=== PATIENT | female | born 1955 | race Caucasian/White ===

== ENCOUNTER 2022-01-06 08:06 | Outpatient (CLI) | payer MEDICARE, BC, SELFPAY ==
--- NOTE | 2022-01-06 08:15 | CRLHL7_ITS ---
For Patients: As a result of the Century Cures Act, medical imaging exams and procedure reports are released immediately into your electronic medical record. You may view this report before your referring provider. If you have questions, please contact your health care provider. BILATERAL SCREENING MAMMOGRAM WITH COMPUTER-AIDED DETECTION AND TOMOSYNTHESIS TECHNIQUE: CC and MLO views were obtained. These mammographic images have been obtained using full-field digital technique. These mammographic images were interpreted with the benefit of computer-aided detection. Breast Tomosynthesis was used in this interpretation. COMPARISON FILM: 01/04/21, 01/03/20, 01/01/19. FINDINGS: There are scattered areas of fibroglandular density IMPRESSION: There is no radiographic evidence for malignancy. ASSESSMENT: BI-RADS Category 1: Negative RECOMMENDATION: Routine screening mammogram in 1 year. A lay language report of this examination will be provided to the patient. Suleman Salazar M.D. Diagnostic Radiologist [email or web address] TRINH/Dictated by: Suleman Salazar MD @ 01/06/2022 12:41:00 PM (Electronically Signed)
== END 2022-01-06 08:07 | disposition home or self-care (01) ==
LOC: MAMMO 08:09
PROVIDERS: PCP Internal Medicine; Visit Provider Internal Medicine
DX: Z12.31 Encounter for screening mammogram for malignant neoplasm of breast (principal)
CPT/HCPCS: 77063; 77067

== ENCOUNTER 2022-01-24 16:15 | Outpatient (CLI) | payer MEDICARE, BC, SELFPAY ==
[2022-01-24 09:34] LABS: Cholesterol* 199 mg/dL (90-199); HDL Cholesterol* 79 mg/dL (>=50); LDL Cholesterol Calculated 107 mg/dL (<100); Triglycerides* 67 mg/dL (40-149)
[2022-01-24 09:48] LABS: Vitamin D 25 Hydroxy* 47 ng/mL (30-80)
== END 2022-01-24 16:16 | disposition home or self-care (01) ==
PROVIDERS: PCP Internal Medicine; Visit Provider Internal Medicine
DX: Z01.419 Encounter for gynecological examination (general) (routine) without abnormal findings (principal); M85.80 Other specified disorders of bone density and structure, unspecified site; E78.5 Hyperlipidemia, unspecified
CPT/HCPCS: 80061; 82306

== ENCOUNTER 2022-04-05 07:46 | Outpatient (CLI) | payer MEDICARE, BC, SELFPAY | END 2022-04-05 07:47 | disposition home or self-care (01) | LOC: OP CLINIC 07:47 | PROVIDERS: PCP Internal Medicine; Visit Provider Surgery | DX: R19.5 Other fecal abnormalities (principal); K63.5 Polyp of colon; K64.4 Residual hemorrhoidal skin tags; K57.30 Diverticulosis of large intestine without perforation or abscess without bleeding | CPT/HCPCS: 45385; 88305; 99153; J2250; J2405; J3010 ==

== ENCOUNTER 2023-01-09 14:17 | Outpatient (CLI) | payer MEDICARE, BC, SELFPAY ==
--- NOTE | 2023-01-09 14:40 | CRLHL7_ITS ---
For Patients: As a result of the Century Cures Act, medical imaging exams and procedure reports are released immediately into your electronic medical record. You may view this report before your referring provider. If you have questions, please contact your health care provider. BILATERAL SCREENING MAMMOGRAM WITH COMPUTER-AIDED DETECTION AND TOMOSYNTHESIS TECHNIQUE: CC and MLO views were obtained. These mammographic images have been obtained using full-field digital technique. These mammographic images were interpreted with the benefit of computer-aided detection. Breast Tomosynthesis was used in this interpretation. COMPARISON FILM: 01/06/22, 01/04/21, 01/03/20. FINDINGS: There are scattered areas of fibroglandular density IMPRESSION: There is no radiographic evidence for malignancy. ASSESSMENT: BI-RADS Category 1: Negative RECOMMENDATION: Routine screening mammogram in 1 year. A lay language report of this examination will be provided to the patient. Suleman Slaazar M.D. Diagnostic Radiologist [email or web address] TRINH/Dictated by: Suleman Salazar MD @ 01/10/2023 12:20:00 PM (Electronically Signed)
== END 2023-01-09 14:18 | disposition home or self-care (01) ==
PROVIDERS: PCP Internal Medicine; Visit Provider Internal Medicine
DX: Z12.31 Encounter for screening mammogram for malignant neoplasm of breast (principal)
CPT/HCPCS: 77063; 77067

== ENCOUNTER 2023-01-25 07:26 | Outpatient (CLI) | payer MEDICARE, BC, SELFPAY | END 2023-01-25 07:27 | disposition home or self-care (01) | LOC: NFLDREF 01-27 10:48 | PROVIDERS: PCP Internal Medicine; Referring Provider Internal Medicine; Visit Provider Internal Medicine | DX: E78.5 Hyperlipidemia, unspecified (principal); M85.80 Other specified disorders of bone density and structure, unspecified site | CPT/HCPCS: 80061; 82306 ==

== ENCOUNTER 2024-01-16 09:56 | Outpatient (CLI) | payer MEDICARE, BC, SELFPAY ==
--- NOTE | 2024-01-16 10:15 | CRLHL7_ITS ---
For Patients: As a result of the Cures Act, medical imaging exams and procedure reports are released immediately into your electronic medical record. You may view this report before your referring provider. If you have questions, please contact your health care provider. BILATERAL SCREENING MAMMOGRAM WITH COMPUTER-AIDED DETECTION AND TOMOSYNTHESIS TECHNIQUE: CC and MLO views were obtained. These mammographic images have been obtained using full-field digital technique. These mammographic images were interpreted with the benefit of computer-aided detection. Breast Tomosynthesis was used in this interpretation. COMPARISON FILM: 01/09/23, 01/06/22, 01/04/21. FINDINGS: There are scattered areas of fibroglandular density IMPRESSION: There is no radiographic evidence for malignancy. ASSESSMENT: BI-RADS Category 1: Negative RECOMMENDATION: Routine screening mammogram in 1 year. A lay language report of this examination will be provided to the patient. Suleman Salazar M.D. Diagnostic Radiologist [email or web address] LUZ ELENA/raul Transcribed: 1:37 p.mRamone carter/Dictated by: Suleman Salazar MD @ 01/16/2024 10:51:00 AM (Electronically Signed)
--- OUTSIDE RECORDS SUMMARY | 2024-01-16 11:14 | XMS_ITS | Clinical Summary ---
Author Organization [facility] Address [address] [place] [address]. [place] [address] Care Team Providers Care Development Coordinator Name Role Phone Keena Oro Primary Care Provider Unavailab le Allergies No known active allergies Medications Medication Sig Dispensed Refills Start Date End Date Status multivitamin, therapeutic with minerals (MULTI-VITAMIN) TABS tablet Take 1 tablet by mouth daily Active cetirizine (ZYRTEC) 10 MG tablet Take 10 mg by mouth daily Active VITAMIN D, CHOLECALCIFEROL, PO Take 2,000 Units by mouth daily Active DOCUSATE SODIUM PO Take 100 mg by mouth every 72 hours (every 3rd day) Active oxyCODONE-acetaminoph en (PERCOCET) 5-325 MG per tabletIndications:Cys tocangus, midline Take 1-2 tablets by mouth every 4 hours as needed for pain (moderate to severe) 15 tablet 01/15/2018 Active docusate sodium (COLACE) 100 MG tabletIndications:Cys tocangus midline Take 100 mg by mouth daily 60 tablet 1 01/15/2018 Active Active Problems Problem Noted Date Diagnosed Date Cystocele, midline 01/15/2018 Social History Tobacco Use Types Packs/Day Years Used Date Smoking Tobacco: Never Smokeless Tobacco: Never Alcohol Use Standard Drinks/Week Comments Yes 0 (1 standard drink = 0.6 oz pur e alcohol) 2 drinks per month Adolescent Education Answer Date Record ed Getting School Help Needed Not on file 12/30 Sex and Gender Information Value Date Recorded Sex Assigned at Not on file Gender Identity Not on file Sexual Orientation Not on file Last Filed Vital Signs Vital Sign Reading Time Taken Comments Blood Pressure 121/64 01/16/2018 8:27 AM CDT Pulse 89 01/15/2018 9:15 PM CDT Temperature 36.8 ??C (98.3 ??F) 01/16/2018 8:27 AM CD T Respiratory Rate 16 01/16/2018 8:27 AM CDT Oxygen Saturation 92% 01/16/2018 8:27 AM CDT Inhaled Oxygen Concentration - - Weight 73.8 kg (162 lb 11.2 oz) 018 11:40 AM CDT Height 152.4 cm (5') 01/15/2018 11:40 AM CDT Body Mass Index 31.78 01/15/2018 11:40 AM CDT Plan of Treatment Not on file Medical Devices Implanted Type Area Compensation/Benefits Specialist Device Identifier Shelf Expiration Date Model / Serial / Lot Mesh Sling Y Shape Restorelle 24x4cm [id number] Implanted:Qty: 1 on 01/15/2018 by Alex Delcid MD at [facility] Mesh Pelvis [employer] 09/11/2020 [id number] / / [id number] Mesh Sling Obtryx-Halo Implanted:Qty: 1 on 01/15/2018 by Alex Delcid MD at [facility] Mesh N/A: Pelvis [employer] 10/23/2020 [id number] / / [id number] Advance Directives For more information, please contact: [phone] * Full Code (Latest Code Status on File) Date Activated Date Inactivated Comments 01/15/2018 6:07 PM 01/16/2018 3:10 PM Question Answer Comments Code status determined by: Unable to dis cuss and no AD/POLST on file; continue PREVIOUSLY ORDERED code status Care Teams Development Coordinator Relationship Specialty Start Date End Date Keena Oro PCP - General Family Practice 12/20/17
--- OUTSIDE RECORDS SUMMARY | 2024-01-16 11:14 | XMS_ITS | Referral Summary ---
Author Organization [facility] Address [address] [place] [address]. [place] [address] Care Team Providers Care Rehab Specialist Name Role Phone Keena Oro Primary Care [...] Active docusate sodium (COLACE) 100 MG tabletIndications:Cys tocele, midline Take 100 mg by mouth daily [...] on file Medical Devices Implanted Type Area Slip Presser Device Identifier Shelf Expiration Date Model / Serial / Lot Mesh Sling Y Shape Restorelle 24x4cm [id number] Implanted:Qty: 1 on 01/15/2018 by Alex Delcid MD at [facility] Mesh Pelvis COLOPLAST 09/11/2020 [id number] / / [id number] Mesh Sling Obtryx-Halo Implanted:Qty: 1 on 01/15/2018 by Alex Delcid MD at [facility] Mesh N/A: Pelvis [employer] 10/23/2020 [id number] / / [id number] Advance Directives For more information, please contact: [phone] * Full Code (Latest Code Status on File) Date Activated Date Inactivated Comments 01/15/2018 6:07 PM 01/16/2018 3:10 PM Question Answer Comments Code status determined by: Unable to dis cuss and no AD/POLST on file; continue PREVIOUSLY ORDERED code status Care Teams Rehab Specialist Relationship Specialty Start Date End Date Keena Oro PCP - General Family Practice 12/20/17
== END 2024-01-16 09:57 | disposition home or self-care (01) ==
LOC: MAMMO 09:57
PROVIDERS: PCP Internal Medicine; Visit Provider Internal Medicine
DX: Z12.31 Encounter for screening mammogram for malignant neoplasm of breast (principal)
CPT/HCPCS: 77063; 77067

== ENCOUNTER 2024-02-09 07:30 | Outpatient (CLI) | payer MEDICARE, BC, SELFPAY ==
--- OUTSIDE RECORDS SUMMARY | 2024-02-12 14:15 | XMS_ITS | Referral Summary ---
Author Organization [facility] Address [address] [place] [address]. [place] [address] Care Team Providers Care Cleat Maker Name Role Phone Keena Oro MD Primary Care Provider Peter lable Allergies No known active allergies Medications multivitamin, therapeutic with minerals (MULTI-VITAMIN) TABS tablet Take 1 tablet by mouth daily Active cetirizine (ZYRTEC) 10 MG tablet Take 10 mg by mouth daily Active VITAMIN D, CHOLECALCIFEROL, PO Take 2,000 Units by mouth daily Active DOCUSATE SODIUM PO Take 100 mg by mouth every 72 hours (every 3rd day) Active oxyCODONE-acetam inophen (PERCOCET) 5-325 MG per tabletIndication s:Cystocele, midline Take 1-2 tablets by mouth every 4 hours as needed for pain (moderate to severe) 15 tablet 01/15/2018 Active docusate sodium (COLACE) 100 MG tabletIndication s:Cystocele, midline Take 100 mg by mouth daily [...] School Help Needed Not on file 12/30 Comments No Sex and Gender Information Value Date Recorded Sex Assigned at Not on file Legal Sex Female 9:04 AM CDT Gender Identity Not on file Sexual Orientation [...] on file Medical Devices Implanted Type Area Step Down Specialist Device Identifier Shelf Expiration Date Model / Serial / Lot Mesh Sling Y Shape Restorelle 24x4cm [id number] Implanted:Qty: 1 on 01/15/2018 by Alex Delcid MD at [facility] Mesh Pelvis COLOPLAST 09/11/2020 [id number] / / [id number] Mesh Sling Obtryx-Halo Implanted:Qty: 1 on 01/15/2018 by Alex Delcid MD at [facility] Mesh N/A: Pelvis [employer] 10/23/2020 [id number] / / [id number] Advance Directives For more information, please contact: [phone] * Full Code (Latest Code Status on File) Date Activated Date Inactivated Comments 01/15/2018 6:07 PM 01/16/2018 3:10 PM Question Answer Comments Code status determined by: Unable to dis cuss and no AD/POLST on file; continue PREVIOUSLY ORDERED code status Care Teams Cleat Maker Relationship Specialty Start Date End Date Keena Oro MD PCP - General Family Practice 12/20/17
--- OUTSIDE RECORDS SUMMARY | 2024-02-12 14:15 | XMS_ITS | Clinical Summary ---
Author Organization [facility] Address [address] [place] [address]. [place] [address] Care Team Providers Care Digital Strategy Specialist Name Role Phone Keena Oro MD Primary [...] on file Medical Devices Implanted Type Area Dyslexia Teacher Device Identifier Shelf Expiration Date Model / Serial / Lot Mesh Sling Y Shape Restorelle 24x4cm [id number] Implanted:Qty: 1 on 01/15/2018 by Alex Delcid MD at [facility] Mesh Pelvis COL[employer]LAST 09/11/2020 [id number] / / [id number] Mesh Sling Obtryx-Halo Implanted:Qty: 1 on 01/15/2018 by Alex Delcid MD at [facility] Mesh N/A: Pelvis [employer] 10/23/2020 [id number] / / [id number] Advance Directives For more information, please contact: [phone] * Full Code (Latest Code Status on File) Date Activated Date Inactivated Comments 01/15/2018 6:07 PM 01/16/2018 3:10 PM Question Answer Comments Code status determined by: Unable to dis cuss and no AD/POLST on file; continue PREVIOUSLY ORDERED code status Care Teams Digital Strategy Specialist Relationship Specialty Start Date End Date Keena Oro MD PCP - General Family Practice 12/20/17
== END 2024-02-09 07:31 | disposition home or self-care (01) ==
LOC: NFLDREF 02-12 14:13
PROVIDERS: PCP Internal Medicine; Referring Provider Internal Medicine; Visit Provider Internal Medicine
DX: E78.5 Hyperlipidemia, unspecified (principal); M81.0 Age-related osteoporosis without current pathological fracture
CPT/HCPCS: 80061; 82306

== ENCOUNTER 2024-03-13 15:09 | Outpatient (CLI) | payer MEDICARE, BC, SELFPAY ==
--- OUTSIDE RECORDS SUMMARY | 2024-03-13 15:15 | XMS_ITS | Referral Summary ---
Author Organization [facility] Address [address] [place] [address]. [place] [address] Care Team Providers Care Merchandising Coordinator Name Role Phone Keena Oro MD Primary [...] 89 01/15/2018 9:15 PM CDT Temperature 36.8 C (98.3 F) 01/16/2018 8:27 AM CDT Respiratory Rate 16 01/16/2018 8:27 AM CDT Oxygen Saturation 92% 01/16/2018 8:27 AM CDT Inhaled Oxygen Concentration - - Weight 73.8 kg (162 lb 11.2 oz) 018 11:40 AM CDT Height 152.4 cm (5') 01/15/2018 11:40 AM CDT Body Mass Index 31.78 01/15/2018 11:40 AM CDT Plan of Treatment Not on file Medical Devices Implanted Type Area Gardening Supervisor Device Identifier Shelf Expiration Date Model / Serial / Lot Mesh Sling Y Shape Restorelle 24x4cm [id number] Implanted:Qty: 1 on 01/15/2018 by Alex Delcid MD at [facility] Mesh Pelvis [employer] 09/11/2020 [id number] / / [id number] Mesh Sling Obtryx-Halo Implanted:Qty: 1 on 01/15/2018 by Alex Delcid MD at [facility] Mesh N/A: Pelvis [employer] 10/23/2020 [id number] / / [id number] Advance Directives For more information, please contact: [phone] * Full Code (Latest Code Status on File) Date Activated Date Inactivated Comments 01/15/2018 6:07 PM 01/16/2018 3:10 PM Question Answer Comments Code status determined by: Unable to dis cuss and no AD/POLST on file; continue PREVIOUSLY ORDERED code status Care Teams Merchandising Coordinator Relationship Specialty Start Date End Date Keena Oro MD PCP - General Family Practice 12/20/17
--- OUTSIDE RECORDS SUMMARY | 2024-03-13 15:15 | XMS_ITS | Clinical Summary ---
Author Organization [facility] Address [address] [place] [address]. [place] [address] Care Team Providers Care Surgical Instrument Repair Specialist Name Role Phone Keena Oro MD [...] on file Medical Devices Implanted Type Area Developer Architect Device Identifier Shelf Expiration Date Model / Serial / Lot Mesh Sling Y Shape Restorelle 24x4cm [id number] Implanted:Qty: 1 on 01/15/2018 by Alex Delcid MD at [facility] Mesh Pelvis [employer] 09/11/2020 [id number] / / [id number] Mesh Sling Obtryx-Halo Implanted:Qty: 1 on 01/15/2018 by Alex Delcid MD at [facility] Mesh N/A: Pelvis [employer] 10/23/2020 [id number] / / [id number] Advance Directives For more information, please contact: [phone] * Full Code (Latest Code Status on File) Date Activated Date Inactivated Comments 01/15/2018 6:07 PM 01/16/2018 3:10 PM Question Answer Comments Code status determined by: Unable to dis cuss and no AD/POLST on file; continue PREVIOUSLY ORDERED code status Care Teams Surgical Instrument Repair Specialist Relationship Specialty Start Date End Date Keena Oro MD PCP - General Family Practice 12/20/17
--- NOTE | 2024-03-13 15:30 | CRLHL7_ITS ---
For Patients: As a result of the Century Cures Act, medical imaging exams and procedure reports are released immediately into your electronic medical record. You may view this report before your referring provider. If you have questions, please contact your health care provider. DXA BONE MINERAL DENSITY STUDY Reason for exam: Osteopenia. Current height (in): 60. Weight (lb): 165. Menopause age: 44. Ethnicity: White. 1. Have you had a previous hip or vertebral fracture? No. 2. Have you had any fractures during your adult life which did not result from significant trauma (e.g., auto accident)? No. 3. Did either of your parents have a hip fracture? No. 4. Do you smoke? No. 5. Have you ever taken Glucocorticoids? No. 6. Do you have rheumatoid arthritis? No. 7. Do you have secondary osteoporosis? No. 8. Do you drink 3 or more alcoholic drinks per day? No. 9. Are you being treated for osteoporosis? No. 10. Have you ever taken any of the following medications: Actonel, Evista, Fosamax, Miacalcin, Reclast, Boniva, Forteo, HRT (i.e., estrogen/hormone therapy), Protelos, Prolia, Vitamin D, Calcium, other ??? please specify. ANSWER: Yes, vitamin D. 11. Do you have any of the following medical conditions: Anorexia or bulimia, asthma or emphysema, end stage renal disease, hyperparathyroidism, any seizure disorders, cancer, inflammatory bowel diseases, hysterectomy, other ??? please specify. ANSWER: Yes, hysterectomy. 12. What was your maximum height (inches)? 61. 13. Do you perform weight bearing exercise regularly? No. 14. Do you regularly consume dairy products? Yes. 15. Do you drink caffeinated beverages? No. 16. At what age did your period start? 11. 17. Are you premenopausal? No. 18. How many full-term pregnancies have you had? 3. 19. Have you ever missed your period for more than 6 months in a row (not including or menopause)? No. TECHNIQUE: Bone mineral density study was performed using the [facility]. FINDINGS: The results of the study expressed as bone mineral density (BMD) are as follows: Lumbar spine L1 to L4: BMD: 1.061 g/cm2. T-score: 0.1. Z-score: 2.2 Neck Left: BMD: 0.711 g/cm2. T-score: -1.2. Z-score: 0.5 Right: BMD: 0.759 g/cm2. T-score: -0.8. Z-score: 1.0 Total Left: BMD: 0.905 g/cm2. T-score: -0.3. Z-score: 1.2 Right: BMD: 0.985 g/cm2. T-score: 0.4. Z-score: 1.8 IMPRESSION: Osteopenia. *Comparison exams done prior to 09/2019 were performed on different unit, [employer]ot[employer] Book. COMPARISON: Compared with scan of 01/14/2019, the bone mineral density has decreased by 6.7 percent at the spine and increased by 0.8 percent at the hip. Compared with scan of 11/06/2014, the bone mineral density has decreased by 0.5 percent at the spine and decreased by 6.7 percent at the hip. FRAX 10-year Fracture Risk Major Osteoporotic Fracture: 8.7% Hip Fracture: 0.9% Reported Risk Factors: [place] () Neck BMD=0.711, BMI=32.2 Beatris Watts M.D. Diagnostic Radiologist [email or web address] ARIE/raul carter/Dictated by: Beatris Watts MD @ 03/15/2024 8:58:00 AM (Electronically Signed)
== END 2024-03-13 15:10 | disposition home or self-care (01) ==
LOC: RAD 15:13
PROVIDERS: PCP Internal Medicine; Visit Provider Internal Medicine
DX: M85.88 Other specified disorders of bone density and structure, other site (principal)
CPT/HCPCS: 77080

== ENCOUNTER 2025-01-17 08:12 | Outpatient (CLI) | payer MEDICARE, BC, SELFPAY ==
--- NOTE | 2025-01-17 08:15 | CRLHL7_ITS ---
For Patients: As a result of the Century Cures Act, medical imaging exams and procedure reports are released immediately into your electronic medical record. You may view this report before your referring provider. If you have questions, please contact your health care provider. INDICATION: BILATERAL SCREENING MAMMOGRAM, ASYMPTOMATIC 69 Y/O FEMALE COMPARISON: , 01/09/2023, 01/06/2022 TECHNIQUE: Digital mammogram in CC and MLO projections including computer-aided detection (CAD) and tomosynthesis. BREAST COMPOSITION: There are scattered areas of fibroglandular density. FINDINGS: No suspicious findings. ASSESSMENT: BI-RADS 1 Negative RECOMMENDATION: Annual screening mammogram. A lay language report of this examination will be provided to the patient. Dictated by: Suleman Salazar MD @ 01/17/2025 09:24:50 (Electronically Signed)
== END 2025-01-17 08:13 | disposition home or self-care (01) ==
LOC: MAMMO 08:17
PROVIDERS: PCP Internal Medicine; Visit Provider Internal Medicine
DX: Z12.31 Encounter for screening mammogram for malignant neoplasm of breast (principal)
CPT/HCPCS: 77063; 77067

== ENCOUNTER 2025-02-11 07:36 | Outpatient (CLI) | payer MEDICARE, BC, SELFPAY | END 2025-02-11 07:37 | disposition home or self-care (01) | LOC: NFLDREF 02-13 15:12 | PROVIDERS: PCP Internal Medicine; Referring Provider Internal Medicine; Visit Provider Internal Medicine | DX: E78.5 Hyperlipidemia, unspecified (principal); Z13.1 Encounter for screening for diabetes mellitus; M85.80 Other specified disorders of bone density and structure, unspecified site | CPT/HCPCS: 80061; 82306; 82947 ==